=== PATIENT | female | born 1965 | race Caucasian/White ===

== ENCOUNTER 2022-11-02 08:55 | Day surgery (SDC) | payer OTHER ==
[~2022-11-02] VITALS: Ht 162.6 cm; Wt 68.0 kg
[~2022-11-02 08:55] MED LIST: ZESTRIL40 M1 PO; [UNRECOGNIZED DRUG - OTHER] PO
[2022-11-02] MEDS ORDERED: AMOX-CLAV 875-1 EACH PO (16:52)
[2022-11-02] MEDS ORDERED: CILOXAN5 ML OTIC (16:52)
== END 2022-11-02 19:55 | disposition home or self-care (01) ==
LOC: CIR.AMB 08:55
PROVIDERS: ATTEND Otolaryngology Otology & Neurotology
DX: H70.12 Chronic mastoiditis, left ear (principal); H72.12 Attic perforation of tympanic membrane, left ear; H90.12 Conductive hearing loss, unilateral, left ear, with unrestricted hearing on the contralateral side; H61.322 Acquired stenosis of left external ear canal secondary to inflammation and infection; Z20.822 Contact with and (suspected) exposure to COVID-19; I10 Essential (primary) hypertension